=== PATIENT | female | born 1980 | race Caucasian/White ===

== ENCOUNTER 2017-03-05 23:41 | Inpatient (IN) | payer MEDICAID ==
[~2017-03-05] VITALS: Ht 162.6 cm; Wt 79.8 kg
[2017-03-05 23:45] VITALS: BP_SYST 116
[2017-03-06] VITALS (7 sets, daily range): BP systolic 95–108
[2017-03-06] MEDS ORDERED: METOCLOPRAMIDE HCL 10 MG/2 ML VIAL IVP ONE
[2017-03-06] MEDS ORDERED: NACL 0.9% 1,000 ML IV ONE
[2017-03-06] MEDS ORDERED: HYDROmorphone 1 MG INJ. 1 MG/ML AMPUL IVP ONE
[2017-03-06 00:20] LABS: HEMATOCRIT 28.2 % (36-48); HEMOGLOBIN 9.2 g/dL (12.0-16.0); MEAN CORPUSCULAR HEMOGLOBIN 30 pg (27-31); MEAN CORPUSCULAR HGB CONC 33 % (32-36); MEAN CORPUSCULAR VOLUME 93 fL (79.0-98.0); PLATELET COUNT (AUTO) 336 K/uL (130-430); RED BLOOD CELL COUNT(AUTO) 3.04 MIL/uL (4.2-6.2); RED CELL DISTRIBUTION WIDTH 12.9 % (9.0-15.0); WHITE BLOOD COUNT (AUTO) 13.1 K/uL (4.8-10.8)
[2017-03-06 00:27] LABS: CALCIUM 7.9 mg/dL (8.4-11.0); CREATININE 0.51 mg/dL (0.55-1.30); POTASSIUM 3.6 mmol/L (3.5-5.1)
[2017-03-06 00:29] LABS: PROTHROMBIN TIME 10.1 SECS (9.5-12.5)
[2017-03-06] MEDS ORDERED: MORPHINE 4 MG/ML INJ. SYRINGE IVP PRN (00:30)
[2017-03-06 00:33] LABS: ALBUMIN 3.5 g/dL (3.4-4.8); TOTAL BILIRUBIN 0.3 mg/dL (0.0-1.0)
[2017-03-06 00:54] LABS: ATYPICAL LYMPHOCYTES % 0 % (0-0); BAND % (MANUAL) 3 % (0-6); BASOPHILS % (MANUAL) 0 % (0-2); EOSINOPHILS % (MANUAL) 0 % (0-7); LYMPHOCYTES % (MANUAL) 3 % (20-46); MONOCYTES % (MANUAL) 1 % (0-11)
[2017-03-06] MEDS: ONDANSETRON HCL 4 MG/2 ML VIAL IVP PRN ×2 (01:57→17:09)
[2017-03-06 04:46] LABS: BILIRUBIN,URINE NEGATIVE (NEGATIVE); BLOOD, URINE 3+ (NEGATIVE); CLARITY/URINE CLEAR (CLEAR); COLOR,URINE YELLOW (YELLOW); GLUCOSE,URINE NEGATIVE (NEGATIVE); KETONES,URINE NEGATIVE (NEGATIVE); LEUKOCYTE ESTERASE ,URINE NEGATIVE (NEGATIVE); NITRITE, URINE NEGATIVE (NEGATIVE); PH,URINE 5.5 (5.0-8.0); PROTEIN URINE NEGATIVE (NEGATIVE); UROBILINOGEN,URINE 0.2 (0.2-1.0)
[2017-03-06 04:48] LABS: BACTERIA,URINE MODERATE /HPF (None Seen); WBC,URINE 0-3 /HPF (0-3)
[2017-03-06] MEDS: D5LR 1,000 ML IV SCH ×3 (06:05→13:50)
[2017-03-06] MEDS ORDERED: ROCURONIUM BROMIDE 10 MG/ML (ZEMURON) IV ONE (11:05)
[2017-03-06] MEDS ORDERED: KETOROLAC TROMETHAMINE 30 MG VIAL IVP ONE (11:05)
[2017-03-06] MEDS ORDERED: GLYCOPYRROLATE 0.2 MG/ML VIAL IJ ONE (11:05)
[2017-03-06] MEDS ORDERED: ONDANSETRON HCL 4 MG/2 ML VIAL IVP ONE (11:05)
[2017-03-06] MEDS ORDERED: fentaNYL CITRATE 250 MCG/5 ML AMP IV ONE (11:05)
[2017-03-06] MEDS ORDERED: NEOSTIGMINE METHYLSULFATE 1 MG/ML, 10 ML VIAL IVP ONE (11:05)
[2017-03-06] MEDS ORDERED: NS 1000 ML BAG IV ONE (11:05)
[2017-03-06] MEDS ORDERED: SEVOFLURANE 15 MIN GAS INH ONE (11:05)
[2017-03-06] MEDS ORDERED: CEFAZOLIN 1 GM IVPB PREMIX 50 ML IV ONE (11:05)
[2017-03-06] MEDS ORDERED: BUPIVACAINE /EPINEPHRINE/PF 0.25% 30 ML VIAL INJ ONE (11:05)
[2017-03-06] MEDS ORDERED: NS IRRIG SOLN 1000 ML IR ONE (11:05)
[2017-03-06] MEDS ORDERED: MIDAZOLAM HCL 5 MG/5 ML VIAL IVP ONE (11:05)
[2017-03-06] MEDS ORDERED: LR 1,000 ML IV.SOLN IV ONE (11:05)
[2017-03-06] MEDS ORDERED: PROPOFOL 200MG/ 20ML VIAL (DIPRIVAN) IV ONE (11:05)
[2017-03-06] MEDS ORDERED: LR 1,000 ML IV SCH (12:01)
[2017-03-06] MEDS ORDERED: METOCLOPRAMIDE HCL 10 MG/2 ML VIAL IVP PRN (12:15)
[2017-03-06] MEDS ORDERED: HYDROmorphone 1 MG INJ. 1 MG/ML AMPUL IVP PRN ×2 (12:15)
[2017-03-06] MEDS ORDERED: HYDROmorphone 2 MG/ML VIAL IVP PRN (12:15)
[2017-03-06] MEDS ORDERED: ONDANSETRON HCL 4 MG/2 ML VIAL IVP PRN (12:30)
[2017-03-06] MEDS ORDERED: PROMETHAZINE HCL 25 MG/ML AMP IM PRN ×2 (12:30)
[2017-03-06] MEDS ORDERED: MORPHINE SULFATE 10 MG/ML VIAL IVP PRN (12:30)
[2017-03-06] MEDS ORDERED: IBUPROFEN 800 MG TABLET PO PRN (12:30)
[2017-03-06] MEDS ORDERED: OXYCODONE/ACETAMINOPHEN 5-325 TABLET PO PRN ×2 (12:30)
[2017-03-06] MEDS ORDERED: HYDROmorphone 1 MG INJ. 1 MG/ML AMPUL ONE (13:04)
[2017-03-06] MEDS ORDERED: OXYC-130 PO (20:55)
[2017-03-06] MEDS ORDERED: IBUP-1480 PO (20:56)
[2017-03-06] MEDS ORDERED: DOCU-144 PO (20:56)
== END 2017-03-06 21:40 | disposition home or self-care (01) | DRG 545 ==
LOC: EDBD 23:41 → SED 23:41 → SMU 03-06 00:30
PROVIDERS: ADMIT Specialist; ATTEND Specialist
PROC: 10T24ZZ Resection of Products of Conception, Ectopic, Percutaneous Endoscopic Approach (ICD-10-PCS; principal; 2017-03-06 11:00)
PROC: 0UB64ZZ Excision of Left Fallopian Tube, Percutaneous Endoscopic Approach (ICD-10-PCS; principal; 2017-03-06 11:00)
DX: O00.102 Left tubal pregnancy without intrauterine pregnancy (principal); D62 Acute posthemorrhagic anemia; Z90.49 Acquired absence of other specified parts of digestive tract; E83.51 Hypocalcemia
CPT/HCPCS: 36415; 80053; 81000-TC; 84702-TC; 85007; 85027; 85610-TC; 85730-TC; 86886; 86900; 86901; 87081; 88304; 88305; 96361; 96374; 96375; 99285; C1727; J0690; J1170; J1885; J2250; J2405; J2704; J2710; J2765; J3010; J3490; J7030; J7120